=== PATIENT | male | born 1950 | race African-American/Black ===

== ENCOUNTER → 2016-11-27 | Day surgery (SDC) | payer BC, MEDICARE ==
[~2016-11-27] VITALS: Ht 157.4 cm; Wt 81.2 kg
[~2016-11-27] MED LIST: ACETAMINOPHEN-H1 TA2 PO; ALPRAZOLAM0.5 M3 JT; AMITRIPTYLINE25 MG PO; ASPIRIN ADULT L81 M1 PO; GABAPENTIN400 MG PO; HYDROCHLOROTHIA25 M1 PO; LISINOPRIL20 MG PO; METFORMIN850 MG PO; OMEPRAZOLE D/R20 MG PO; SIMVASTATIN80 MG PO
--- NOTE | ~2016-11-27 | PROC NOTE ---
[place], [place] PROCEDURE NOTE NAME: FLORIAN MALDONADO UNIT #: [id number] ROOM: DOCTOR: THO MUSA MD BIRTHDATE: [birth year] DOS: 11/27/2016 PREOPERATIVE DIAGNOSIS: Screening examination. POSTOPERATIVE DIAGNOSIS: Screening examination. PROCEDURE: Colonoscopy. ENDOSCOPIST: Tho Musa MD COUNTY NURSE: [place]. ANESTHESIA: MAC. INDICATIONS: This is a 66-year-old -French gentleman with no prior history of colonoscopy, who is here for the above-mentioned procedure. The procedure and its complications were explained to the patient in detail preoperatively. Complications that were discussed included but were not limited to bleeding, missed lesions and colon perforation. He agreed to proceed. DESCRIPTION OF PROCEDURE: After identifying the patient, the patient was brought into the endoscopy suite and laid in the left lateral position. After IV sedation was administered, a timeout procedure was called and a digital rectal exam was performed. This was within normal limits. There was no blood on the examining finger and no masses that could be felt. An adult colonoscope was now introduced into the anal canal and advanced sequentially into the rectum, sigmoid colon, descending colon, transverse colon and ascending colon up to the cecum. The prep was found to be optimal. Upon reaching the cecum, the scope was withdrawn. Total withdrawal time was approximately 7 minutes. There was no obvious mucosal lesions that could be identified upon withdrawal. Upon reaching the rectum, the scope was retroflexed and there were internal hemorrhoids that could be identified which were uncomplicated. The scope was withdrawn and the patient was taken to the recovery room in a stable fashion. There were no complications. Dr. Tho Musa, the attending endoscopist, was present throughout the operating case. Based on these findings, the patient is recommended another colonoscopy in 10 years or earlier if he had any GI related issues. These findings were relayed to the patient's and I will talk to the patient himself in the office in 2 weeks. [place], [place] PROCEDURE NOTE NAME: FLORIAN MALDONADO UNIT #: [id number] ROOM: DOCTOR: THO MUSA MD BIRTHDATE: [birth year] Tho Musa MD CM:PROCNOTE:PROCEDURE NOTE [id number] THO MUSA MD
== END | disposition home or self-care (01) ==
LOC: SDC 11-24 11:00
DX: Z12.11 Encounter for screening for malignant neoplasm of colon (principal); K64.8 Other hemorrhoids; E11.9 Type 2 diabetes mellitus without complications; I10 Essential (primary) hypertension; E78.00 Pure hypercholesterolemia, unspecified; Z83.3 Family history of diabetes mellitus; Z82.49 Family history of ischemic heart disease and other diseases of the circulatory system; Z82.3 Family history of stroke; F17.210 Nicotine dependence, cigarettes, uncomplicated

== ENCOUNTER → 2016-12-14 | Outpatient (CLI) | payer BC, MEDICARE ==
[2016-12-14 12:50] LABS: BASO % 0.3 % (0.0-1.0); EOS # 0.1 10*3/uL (0.0-0.4); EOS % 1.7 % (1.0-4.0); HEMATOCRIT 42.6 % (42.0-52.0); HEMOGLOBIN 14.3 g/dl (14.0-18.0); LYMPH % 29.4 % (27.0-41.0); MEAN CELL VOLUME 90.1 fl (80.0-94.0); MEAN CORPUSCULAR HGB 30.2 pg (27.0-31.0); MEAN CORPUSCULAR HGB CONC 33.6 g/dl (33.0-37.0); MEAN PLATELET VOLUME 10.9 fl (9.6-12.3); MONO # 0.2 10*3/uL (0.1-1.0); MONO % 6.5 % (3.0-9.0); NEUT # 2.2 10*3/uL (2.3-7.9); NEUT % 61.5 % (47.0-73.0); PLATELET COUNT AUTOMATED 237 10*3/uL (130-400); RED BLOOD COUNT 4.73 10*6/uL (4.50-5.90); RED CELL DISTRI WIDTH 13.2 % (0-14.5); WHITE BLOOD COUNT 3.5 10*3/uL (4.8-10.8)
[2016-12-14 12:54] LABS: HEMOGLOBIN A1c 6.3 % (4.8-5.6)
[2016-12-14 13:09] LABS: ALBUMIN 3.7 gm/dl (3.1-4.5); ALKALINE PHOSPHATASE 60 U/L (45-117); BILIRUBIN, TOTAL 0.4 mg/dl (0.2-1.0); BUN 15 mg/dl (7-24); CARBON DIOXIDE 27 mmol/L (21-32); CHLORIDE 105 mmol/L (98-107); CHOLESTEROL 120 mg/dL (<200); EST GLOM FILT AFRICAN AMERICAN > 60 ml/min; FREE T4 1.12 ng/dl (0.76-1.46); GLUCOSE 107 mg/dL (65-99); HDL CHOLESTEROL 67 mg/dl (40-60); LDL CHOLESTEROL 36 mg/dL (9-159); POTASSIUM 4.1 mmol/L (3.5-5.1); SGOT/AST 17 IU/L (3-35); SGPT/ALT 27 U/L (12-78); SODIUM 141 mmol/L (136-145); TOTAL PROTEIN 6.5 gm/dL (6.4-8.2); TRIGLYCERIDES 85 mg/dl (<150); VLDL CHOLESTEROL 17 mg/dL (6-40)
[2016-12-14 13:13] LABS: THYROID STIM HORMONE (HS) 0.932 uIU/ml (0.358-4.75)
[2016-12-14 13:41] LABS: FOLIC ACID 12.05 ng/mL (>5.38); VITAMIN D, 25-HYDROXY 35.9 ng/mL (30-100)
== END | disposition home or self-care (01) ==
LOC: LAB 03:06 → RESCLI 03:06
PROVIDERS: Student in an Organized Health Care Education/Training Program
DX: E11.9 Type 2 diabetes mellitus without complications (principal); R53.83 Other fatigue

== ENCOUNTER → 2017-01-11 | Outpatient (CLI) | payer BC, MEDICARE ==
[2017-01-11 14:49] LABS: BASO % 0.5 % (0.0-1.0); EOS % 0.5 % (1.0-4.0); HEMATOCRIT 42.5 % (42.0-52.0); HEMOGLOBIN 14.1 g/dl (14.0-18.0); LYMPH # 1.5 10*3/uL (1.3-4.4); LYMPH % 27.4 % (27.0-41.0); MEAN CELL VOLUME 90.4 fl (80.0-94.0); MEAN CORPUSCULAR HGB CONC 33.2 g/dl (33.0-37.0); MEAN PLATELET VOLUME 10.4 fl (9.6-12.3); MONO # 0.4 10*3/uL (0.1-1.0); MONO % 6.6 % (3.0-9.0); NEUT # 3.6 10*3/uL (2.3-7.9); NEUT % 64.3 % (47.0-73.0); PLATELET COUNT AUTOMATED 236 10*3/uL (130-400); RED CELL DISTRI WIDTH 13.1 % (0-14.5); WHITE BLOOD COUNT 5.6 10*3/uL (4.8-10.8)
[2017-01-12 09:14] LABS: MICRO ALBUMIN/CRE RATIO 6.2 (0.0-30.0)
== END | disposition home or self-care (01) ==
LOC: RESCLI 00:39 → LAB 00:39 → RESCLI 09:44
PROVIDERS: Internal Medicine
DX: E11.9 Type 2 diabetes mellitus without complications (principal); D72.819 Decreased white blood cell count, unspecified

== ENCOUNTER 2017-02-15 13:58 | Inpatient (IN) | payer BC, MEDICARE ==
[2017-02-14 20:20] VITALS: BP 149/78
[~2017-02-15] VITALS: Ht 162.5 cm; Wt 78.6 kg
--- NOTE | ~2017-02-15 | CON ---
[place], [place] REPORT OF CONSULTATION NAME: FLORIAN MALDONADO UNIT #: [id number] ROOM: 520 DOCTOR: ANDRZEJ WEN,DECEMBER BIRTHDATE: [birth year] DOS: 02/18/2017 HISTORY OF PRESENT ILLNESS: The patient is a 66-year-old -Stateless male who was admitted from home on 02/15. He came in, not feeling well, having fevers. He had been sick for a few days. Complaining of, he states, kidney pain. He had pain across his back as well as pressure in lower abdomen and burning/dysuria. He was started on Merrem. He has been running intermittent fevers. He states he has not been on any recent antibiotics at home. His urine cultures negative. His blood cultures negative. He does have a history of prostate cancer and received brachytherapy for that. CT showed a possible pyelonephritis. The CT was done without contrast. States he does feel better. He continued to have temps for a few days, but his temps have been down since yesterday. PAST MEDICAL HISTORY: As above as well as GERD, diabetes, hyperlipidemia, hypertension, neuropathy, knee surgery. SOCIAL HISTORY: Nonsmoker, nondrinker. No illicit drug use. . FAMILY MEDICAL HISTORY: Significant for father with cancer and mother with kidney issues. REVIEW OF SYSTEMS: Alert and oriented, feeling better. Denies any dysuria. States his back pain has been improving. His last temp was last night was 101.9. No headache or dizziness. No chest pain or palpitations. No cough or shortness of breath. No peripheral edema. As above in history of present illness. Further review of systems is unremarkable. CURRENT MEDICATIONS: Include aspirin, Elavil, Xanax, Prilosec, Zocor, Zestril, [place], Glucophage, Neurontin, Lovenox, Merrem, Restoril, Zofran, milk of magnesia, Dulcolax. RADIOLOGY: Imaging reviewed. Chest x-ray shows ____ density in the right middle fissure, possibly fluid. LABORATORY DATA: WBC is 5.8. This had improved from 11.9 on admission. Platelets 218. BUN 7 and creatinine 0.91. PHYSICAL EXAMINATION: VITAL SIGNS: Temp 98.3, pulse 86, respirations 20, BP 145/84. GENERAL: A 66-year-old -Stateless male in no acute distress. HEAD, EYES, EARS, NOSE AND THROAT: Normocephalic. Mucous membranes pink and moist. No thrush. NECK: No cervical lymphadenopathy. LUNGS: Clear to auscultation bilaterally. Respirations even and unlabored. HEART: Regular rhythm. No murmur appreciated. ABDOMEN: Soft, nontender, obese, positive bowel sounds, nondistended. No CVA tenderness. EXTREMITIES: No edema, deformity or cyanosis noted. SKIN: Warm, dry and intact, free of rashes. [place], [place] REPORT OF CONSULTATION NAME: FLORIAN MALDONADO UNIT #: [id number] ROOM: [facility] DOCTOR: ANDRZEJ WENDECEMBER BIRTHDATE: [birth year] ASSESSMENT AND PLAN: Despite the negative urine culture symptomatically ____ scan does seem consistent with pyelonephritis. Fevers do seem to be improving. The last temp was yesterday evening of 101.9. We will continue to follow. I discussed with the patient and his , he needs to have a repeat chest x-ray as well to reevaluate the right middle lobe area. Case discussed with Dr. Gato Cruz. DECEMBER BEHZAD DONNELLY GATO CRUZ MD CM:CONSTR:REPORT OF CONSULTATION 1849 02/18/17 2008 interface
--- NOTE | ~2017-02-15 | PR ---
[place], [place] PROGRESS NOTE NAME: FLORIAN MALDONADO UNIT #: [id number] ROOM: [facility] DOCTOR: ANDRZEJ WEN,DECEMBER BIRTHDATE: [birth year] DOS: 02/19/2017 SUBJECTIVE: The patient is a 66-year-old -Guyanese male who is being followed for possible pyelonephritis. He had a CT that showed possible pyelo and he complained of mid back pain at the time of admission ____ and also pelvic discomfort. His UA was unremarkable, however and his urine cultures are negative. Blood cultures are negative. He has been receiving Merrem for possible pyelonephritis. He continues to have some temp ____ temp 101.6 last night, has been afebrile today. He denies any cough or shortness of breath. No dyspnea on exertion. No nausea or vomiting. No diarrhea. No rash or itch. No dysuria or hematuria. No flank pain. LABORATORY DATA: Showed sodium 143. BUN 6. Cultures as above. Chest x-ray reviewed and shows worsening infiltrates. PHYSICAL EXAMINATION: GENERAL: A 66-year-old -Guyanese male, in no acute distress, nontoxic in appearance. HEAD, EYES, EARS, NOSE AND THROAT: Normocephalic. No thrush. LUNGS: Clear to auscultation bilaterally. Respirations even and unlabored. HEART: Regular rhythm. No murmur appreciated. ABDOMEN: Soft, obese, nontender. No masses. EXTREMITIES: No edema, deformity or cyanosis. SKIN: Warm, dry. No rash. BACK: No CVA tenderness. ASSESSMENT: Recurrent fever, blood and urine cultures negative, questionable pyelonephritis on his CT scan, worsening chest x-ray. PLAN: At this point, we will check a CT of the chest, add Levaquin, check urine for Legionella and Strep pneumoniae antigen, possibly stop the Merrem. Follow up on cultures and scans and adjust antibiotics accordingly. Case discussed with Dr. Gato Cruz. DECEMBER BEHZAD DONNELLY [place], [place] PROGRESS NOTE NAME: FLORIAN MALDONADO UNIT #: [id number] ROOM: 520 DOCTOR: ANDRZEJ WEN,DECEMBER BIRTHDATE: [birth year] GATO CRUZ MD CM:PNTRANS 1834 01 ANDRZEJ WEN 02/19/17 2001 interface
--- NOTE | ~2017-02-15 | CON ---
[place], [place] REPORT OF CONSULTATION NAME: FLORIAN MALDONADO UNIT #: [id number] ROOM: 520 DOCTOR: ANTHONY YOU,GATO Lubin BIRTHDATE: [birth year] DOS: 02/21/2017 ADDENDUM This is an addendum to the consult dictated originally by Dr. Edwige hung on , 02/18/17. I agree with the above case after reviewing the labs, radiographs and will follow the patient up clinically and make appropriate changes in treatment. Thank you for allowing me to see the patient. GATO CRUZ MD CM:CONSTR:REPORT OF CONSULTATION 1726 02/22/17 0217 interface
[2017-02-15 14:07] LABS: BILIRUBIN 2+ (NEGATIVE); BLOOD TRACE-LYSED (NEGATIVE); CLARITY CLEAR (CLEAR); COLOR YELLOW (YELLOW); GLUCOSE NEGATIVE (NEGATIVE); KETONE 2+ (NEGATIVE); LEUKO ESTERASE NEGATIVE (NEGATIVE); NITRITE NEGATIVE (NEGATIVE); PROTEIN 2+ (NEGATIVE); SPECIFIC GRAVITY >= 1.030 (1.005-1.030)
[2017-02-15 14:11] VITALS: BP 154/92
[2017-02-15 14:31] LABS: EPITHELIAL CELLS 0-2; WBC 0-2 wbc/hpf (0-5)
[2017-02-15 14:32] LABS: BACTERIA TRACE; MUCOUS 2+; URINE REFLEX COMMENT NO (NO)
[2017-02-15 15:03] LABS: BILIRUBIN 2+ (NEGATIVE); BLOOD 1+ (NEGATIVE); CLARITY CLEAR (CLEAR); COLOR YELLOW (YELLOW); GLUCOSE NEGATIVE (NEGATIVE); KETONE 1+ (NEGATIVE); LEUKO ESTERASE NEGATIVE (NEGATIVE); NITRITE NEGATIVE (NEGATIVE); PROTEIN 2+ (NEGATIVE); SPECIFIC GRAVITY 1.025 (1.005-1.030)
[2017-02-15 15:12] LABS: BASO % 0.1 % (0.0-1.0); HEMATOCRIT 42.2 % (42.0-52.0); HEMOGLOBIN 14.1 g/dl (14.0-18.0); IG # 0.1 10*3/uL (0.0-0.1); LYMPH # 1.1 10*3/uL (1.3-4.4); LYMPH % 9.1 % (27.0-41.0); MEAN CELL VOLUME 88.7 fl (80.0-94.0); MEAN CORPUSCULAR HGB 29.6 pg (27.0-31.0); MEAN CORPUSCULAR HGB CONC 33.4 g/dl (33.0-37.0); MEAN PLATELET VOLUME 10.5 fl (9.6-12.3); MONO # 1.1 10*3/uL (0.1-1.0); MONO % 9.2 % (3.0-9.0); NEUT # 9.6 10*3/uL (2.3-7.9); NEUT % 80.8 % (47.0-73.0); PLATELET COUNT AUTOMATED 223 10*3/uL (130-400); RED BLOOD COUNT 4.76 10*6/uL (4.50-5.90); RED CELL DISTRI WIDTH 12.9 % (0-14.5); WHITE BLOOD COUNT 11.9 10*3/uL (4.8-10.8)
[2017-02-15 15:20] LABS: PROTHROMBIN TIME 10.3 SECONDS (9.0-12.4)
[2017-02-15 15:25] LABS: BACTERIA 1+; URINE REFLEX COMMENT YES (NO); WBC 0-2 wbc/hpf (0-5)
[2017-02-15 15:30] LABS: ALBUMIN 3.6 gm/dl (3.1-4.5); ALKALINE PHOSPHATASE 60 U/L (45-117); BILIRUBIN, TOTAL 0.6 mg/dl (0.2-1.0); BUN 16 mg/dl (7-24); CARBON DIOXIDE 28 mmol/L (21-32); CHLORIDE 99 mmol/L (98-107); EST GLOM FILT AFRICAN AMERICAN > 60 ml/min; GLUCOSE 130 mg/dL (65-99); MAGNESIUM 2.2 mg/dL (1.5-2.1); POTASSIUM 3.9 mmol/L (3.5-5.1); SGOT/AST 18 IU/L (3-35); SGPT/ALT 21 U/L (12-78); SODIUM 137 mmol/L (136-145); TOTAL PROTEIN 8.1 gm/dL (6.4-8.2)
[2017-02-15 15:39] LABS: TROPONIN I < 0.015 ng/ml (<0.045)
[2017-02-15 18:15] VITALS: BP 151/95
[2017-02-15 19:35] VITALS: BP 170/100
[2017-02-15 20:25] VITALS: BP 149/78
[2017-02-16] VITALS: BP 144/79
[2017-02-16 06:25] LABS: BASO % 0.2 % (0.0-1.0); EOS % 0.1 % (1.0-4.0); HEMATOCRIT 36.5 % (42.0-52.0); HEMOGLOBIN 12.3 g/dl (14.0-18.0); IG # 0.1 10*3/uL (0.0-0.1); LYMPH # 0.8 10*3/uL (1.3-4.4); LYMPH % 8.6 % (27.0-41.0); MEAN CELL VOLUME 88.2 fl (80.0-94.0); MEAN CORPUSCULAR HGB 29.7 pg (27.0-31.0); MEAN CORPUSCULAR HGB CONC 33.7 g/dl (33.0-37.0); MEAN PLATELET VOLUME 10.6 fl (9.6-12.3); MONO # 1.1 10*3/uL (0.1-1.0); MONO % 11.8 % (3.0-9.0); NEUT # 7.4 10*3/uL (2.3-7.9); NEUT % 78.7 % (47.0-73.0); PLATELET COUNT AUTOMATED 181 10*3/uL (130-400); RED BLOOD COUNT 4.14 10*6/uL (4.50-5.90); RED CELL DISTRI WIDTH 12.9 % (0-14.5); WHITE BLOOD COUNT 9.5 10*3/uL (4.8-10.8)
[2017-02-16 06:48] LABS: HEMOGLOBIN A1c 6.7 % (4.8-5.6)
[2017-02-16 07:01] LABS: ALBUMIN 2.9 gm/dl (3.1-4.5); ALKALINE PHOSPHATASE 48 U/L (45-117); BUN 11 mg/dl (7-24); CARBON DIOXIDE 25 mmol/L (21-32); CHLORIDE 106 mmol/L (98-107); CHOLESTEROL 111 mg/dL (<200); EST GLOM FILT AFRICAN AMERICAN > 60 ml/min; GLUCOSE 127 mg/dL (65-99); HDL CHOLESTEROL 61 mg/dl (40-60); LDL CHOLESTEROL 29 mg/dL (9-159); MAGNESIUM 2.1 mg/dL (1.5-2.1); PHOSPHOROUS 1.8 mg/dL (2.5-4.9); POTASSIUM 3.8 mmol/L (3.5-5.1); SGOT/AST 19 IU/L (3-35); SGPT/ALT 16 U/L (12-78); SODIUM 141 mmol/L (136-145); TOTAL PROTEIN 6.6 gm/dL (6.4-8.2); TRIGLYCERIDES 104 mg/dl (<150); VLDL CHOLESTEROL 21 mg/dL (6-40)
[2017-02-16 07:06] LABS: BILIRUBIN, TOTAL 0.6 mg/dl (0.2-1.0); THYROID STIM HORMONE (HS) 0.275 uIU/ml (0.358-4.75)
[2017-02-16 07:22] LABS: FOLIC ACID 13.4 ng/mL (>5.38); VITAMIN D, 25-HYDROXY 43.4 ng/mL (30-100)
[2017-02-16 08:00] VITALS: BP 157/82
[2017-02-16 12:00] VITALS: BP 157/79
[2017-02-16 16:00] VITALS: BP 121/51
[2017-02-16 20:00] VITALS: BP 148/81
[2017-02-17] VITALS: BP 144/76
[2017-02-17 06:23] LABS: BASO % 0.2 % (0.0-1.0); EOS % 0.6 % (1.0-4.0); HEMATOCRIT 36.9 % (42.0-52.0); HEMOGLOBIN 12.3 g/dl (14.0-18.0); MEAN CELL VOLUME 89.1 fl (80.0-94.0); MEAN CORPUSCULAR HGB 29.7 pg (27.0-31.0); MEAN CORPUSCULAR HGB CONC 33.3 g/dl (33.0-37.0); MEAN PLATELET VOLUME 10.5 fl (9.6-12.3); MONO % 15.3 % (3.0-9.0); NEUT # 4.5 10*3/uL (2.3-7.9); NEUT % 68.3 % (47.0-73.0); PLATELET COUNT AUTOMATED 200 10*3/uL (130-400); RED BLOOD COUNT 4.14 10*6/uL (4.50-5.90); WHITE BLOOD COUNT 6.6 10*3/uL (4.8-10.8)
[2017-02-17 06:51] LABS: BUN 9 mg/dl (7-24); CARBON DIOXIDE 27 mmol/L (21-32); CHLORIDE 107 mmol/L (98-107); EST GLOM FILT AFRICAN AMERICAN > 60 ml/min; GLUCOSE 135 mg/dL (65-99); POTASSIUM 3.9 mmol/L (3.5-5.1); SODIUM 142 mmol/L (136-145)
[2017-02-17 08:00] VITALS: BP 147/92; BP 151/82
[2017-02-17 12:00] VITALS: BP 135/80
[2017-02-17 16:00] VITALS: BP 124/57
[2017-02-17 20:00] VITALS: BP 157/54
[2017-02-18] VITALS: BP 146/80
[2017-02-18 06:18] LABS: BASO % 0.3 % (0.0-1.0); EOS # 0.1 10*3/uL (0.0-0.4); EOS % 1.9 % (1.0-4.0); HEMATOCRIT 36.2 % (42.0-52.0); IG # 0.1 10*3/uL (0.0-0.1); LYMPH % 17.9 % (27.0-41.0); MEAN CELL VOLUME 89.8 fl (80.0-94.0); MEAN CORPUSCULAR HGB 29.8 pg (27.0-31.0); MEAN CORPUSCULAR HGB CONC 33.1 g/dl (33.0-37.0); MEAN PLATELET VOLUME 10.6 fl (9.6-12.3); MONO # 0.8 10*3/uL (0.1-1.0); MONO % 13.9 % (3.0-9.0); NEUT # 3.8 10*3/uL (2.3-7.9); PLATELET COUNT AUTOMATED 218 10*3/uL (130-400); RED BLOOD COUNT 4.03 10*6/uL (4.50-5.90); RED CELL DISTRI WIDTH 13.1 % (0-14.5); WHITE BLOOD COUNT 5.8 10*3/uL (4.8-10.8)
[2017-02-18 06:45] LABS: CHLORIDE 107 mmol/L (98-107); SODIUM 142 mmol/L (136-145)
[2017-02-18 06:50] LABS: BUN 7 mg/dl (7-24); CARBON DIOXIDE 26 mmol/L (21-32); EST GLOM FILT AFRICAN AMERICAN > 60 ml/min; GLUCOSE 132 mg/dL (65-99)
[2017-02-18 08:00] VITALS: BP 155/92
[2017-02-18 12:00] VITALS: BP 136/77
[2017-02-18 16:00] VITALS: BP 145/84
[2017-02-18 20:00] VITALS: BP 153/88
[2017-02-19] VITALS: BP 132/79
[2017-02-19 07:51] LABS: BUN 6 mg/dl (7-24); CARBON DIOXIDE 29 mmol/L (21-32); CHLORIDE 104 mmol/L (98-107); EST GLOM FILT AFRICAN AMERICAN > 60 ml/min; GLUCOSE 106 mg/dL (65-99); PHOSPHOROUS 2.5 mg/dL (2.5-4.9); SODIUM 143 mmol/L (136-145)
[2017-02-19 08:00] VITALS: BP 168/78
[2017-02-19 12:00] VITALS: BP 146/78
[2017-02-19 16:00] VITALS: BP 134/63
[2017-02-19 20:00] VITALS: BP 141/87
[2017-02-20] VITALS: BP 144/86
[2017-02-20 08:00] VITALS: BP 152/90
[2017-02-20 12:00] VITALS: BP 134/80
[2017-02-20 16:00] VITALS: BP 118/64
[2017-02-20 20:00] VITALS: BP 142/88; BP 148/93
[2017-02-21] VITALS: BP 125/65
[2017-02-21 06:12] LABS: HEMATOCRIT 36.3 % (42.0-52.0); MEAN CELL VOLUME 89.6 fl (80.0-94.0); MEAN CORPUSCULAR HGB 29.6 pg (27.0-31.0); MEAN CORPUSCULAR HGB CONC 33.1 g/dl (33.0-37.0); MEAN PLATELET VOLUME 10.2 fl (9.6-12.3); PLATELET COUNT AUTOMATED 340 10*3/uL (130-400); RED BLOOD COUNT 4.05 10*6/uL (4.50-5.90); RED CELL DISTRI WIDTH 12.7 % (0-14.5); WHITE BLOOD COUNT 7.8 10*3/uL (4.8-10.8)
[2017-02-21 06:46] LABS: ALBUMIN 2.6 gm/dl (3.1-4.5); ALKALINE PHOSPHATASE 58 U/L (45-117); BASOPHIL # 0.1 10*3/uL (0-0.1); BASOPHILS 1 % (0-1); BILIRUBIN, TOTAL 0.3 mg/dl (0.2-1.0); BUN 9 mg/dl (7-24); CARBON DIOXIDE 30 mmol/L (21-32); CHLORIDE 103 mmol/L (98-107); EST GLOM FILT AFRICAN AMERICAN > 60 ml/min; GLUCOSE 134 mg/dL (65-99); LYMPHOCYTE # 1.3 10*3/uL (1.3-4.4); MONOCYTE # 0.3 10*3/uL (0.1-1.0); MYELOCYTES 1 % (0-0); NEUTROPHILS 77 % (47-73); PLATELET SUFFICIENCY NORMAL (NORMAL); POTASSIUM 4.4 mmol/L (3.5-5.1); SGOT/AST 13 IU/L (3-35); SGPT/ALT 20 U/L (12-78); SODIUM 143 mmol/L (136-145); TOTAL CELLS COUNTED 100 #CELLS; TOTAL PROTEIN 6.3 gm/dL (6.4-8.2)
[2017-02-21 08:00] VITALS: BP 128/98
[2017-02-21] MEDS ORDERED: LEVAQUIN750 M1 PO (11:50)
[2017-02-22 16:10] LABS: ORGANISM ID Not indicated. (.); SPECIMEN SOURCE Urine (.); STREPTOCOCCUS PNEUMONIAE AG Negative (Negative)
== END 2017-02-21 13:15 | disposition home or self-care (01) | DRG 871 ==
LOC: ED 13:58 → EDSTATUS 13:58 → ED 14:00 → 5E 18:42 → EDHOLD 18:42 → 5E 19:01
PROVIDERS: Family Medicine; Internal Medicine; Nurse Practitioner; Obstetrics & Gynecology; Physician Assistant; Student in an Organized Health Care Education/Training Program
DX: A41.9 Sepsis, unspecified organism (principal); J18.9 Pneumonia, unspecified organism; E44.0 Moderate protein-calorie malnutrition; E11.40 Type 2 diabetes mellitus with diabetic neuropathy, unspecified; N12 Tubulo-interstitial nephritis, not specified as acute or chronic; I10 Essential (primary) hypertension; G89.29 Other chronic pain; F41.9 Anxiety disorder, unspecified; E78.5 Hyperlipidemia, unspecified; K21.9 Gastro-esophageal reflux disease without esophagitis; E83.39 Other disorders of phosphorus metabolism; Z85.46 Personal history of malignant neoplasm of prostate; Z79.84 Long term (current) use of oral hypoglycemic drugs; Z68.29 Body mass index [BMI] 29.0-29.9, adult; Z83.3 Family history of diabetes mellitus; Z82.3 Family history of stroke; Z84.1 Family history of disorders of kidney and ureter; Z82.49 Family history of ischemic heart disease and other diseases of the circulatory system; Z79.899 Other long term (current) drug therapy; Z79.82 Long term (current) use of aspirin; Z80.9 Family history of malignant neoplasm, unspecified

== ENCOUNTER → 2017-03-15 | Outpatient (CLI) | payer OTHER, MEDICARE ==
[~2017-03-15] MED LIST changes: +LEVAQUIN750 M1 PO
== END | disposition home or self-care (01) ==
LOC: RESCLI 02:00
DX: E11.9 Type 2 diabetes mellitus without complications (principal); I10 Essential (primary) hypertension; M19.90 Unspecified osteoarthritis, unspecified site; M54.42 Lumbago with sciatica, left side; M54.41 Lumbago with sciatica, right side; G89.29 Other chronic pain; K21.9 Gastro-esophageal reflux disease without esophagitis; E55.9 Vitamin D deficiency, unspecified; E78.5 Hyperlipidemia, unspecified

== ENCOUNTER → 2017-12-08 | Outpatient (CLI) | payer OTHER, MEDICARE | END | disposition home or self-care (01) | LOC: RESCLI 08:15 | DX: E11.9 Type 2 diabetes mellitus without complications (principal); I10 Essential (primary) hypertension; M19.90 Unspecified osteoarthritis, unspecified site; M54.42 Lumbago with sciatica, left side; M54.41 Lumbago with sciatica, right side; G89.29 Other chronic pain; K21.9 Gastro-esophageal reflux disease without esophagitis; D72.819 Decreased white blood cell count, unspecified; E55.9 Vitamin D deficiency, unspecified; E78.5 Hyperlipidemia, unspecified; F41.9 Anxiety disorder, unspecified; E66.9 Obesity, unspecified ==

== ENCOUNTER → 2018-01-05 | Outpatient (CLI) | payer OTHER, MEDICARE ==
[2018-01-06 07:06] LABS: HEPATITIS B SURFACE AG Negative (Negative); HEPATITIS C VIRUS ANTIBODY <0.1 s/co (0.0-0.9)
== END | disposition home or self-care (01) ==
LOC: RESCLI 09:52
PROVIDERS: Student in an Organized Health Care Education/Training Program
DX: E11.9 Type 2 diabetes mellitus without complications (principal); M19.90 Unspecified osteoarthritis, unspecified site; M54.42 Lumbago with sciatica, left side; M54.41 Lumbago with sciatica, right side; K21.9 Gastro-esophageal reflux disease without esophagitis; E55.9 Vitamin D deficiency, unspecified; E78.5 Hyperlipidemia, unspecified; F41.9 Anxiety disorder, unspecified; E66.9 Obesity, unspecified; G89.29 Other chronic pain; I10 Essential (primary) hypertension; Z85.46 Personal history of malignant neoplasm of prostate

== ENCOUNTER → 2018-03-29 | Outpatient (CLI) | payer OTHER, MEDICARE | END | disposition home or self-care (01) | LOC: RESCLI 03:51 | DX: E11.9 Type 2 diabetes mellitus without complications (principal); I10 Essential (primary) hypertension; M19.90 Unspecified osteoarthritis, unspecified site; M54.42 Lumbago with sciatica, left side; M54.41 Lumbago with sciatica, right side; G89.29 Other chronic pain; K21.9 Gastro-esophageal reflux disease without esophagitis; D72.819 Decreased white blood cell count, unspecified; E55.9 Vitamin D deficiency, unspecified; E78.5 Hyperlipidemia, unspecified; F41.9 Anxiety disorder, unspecified; E66.9 Obesity, unspecified; Z79.82 Long term (current) use of aspirin; Z79.899 Other long term (current) drug therapy; Z88.8 Allergy status to other drugs, medicaments and biological substances ==

== ENCOUNTER → 2018-06-09 | Outpatient (CLI) | payer OTHER, MEDICARE ==
[2018-06-09 13:07] LABS: HEMATOCRIT 41.5 % (42.0-52.0); MEAN CELL VOLUME 89.6 fl (80.0-94.0); MEAN CORPUSCULAR HGB 30.2 pg (27.0-31.0); MEAN CORPUSCULAR HGB CONC 33.7 g/dl (33.0-37.0); MEAN PLATELET VOLUME 10.4 fl (9.6-12.3); RED BLOOD COUNT 4.63 10*6/uL (4.50-5.90); RED CELL DISTRI WIDTH 13.5 % (0-14.5); WHITE BLOOD COUNT 5.3 10*3/uL (4.8-10.8)
== END | disposition home or self-care (01) ==
LOC: RESCLI 00:23 → LAB 00:23 → RESCLI 07:14
DX: D72.819 Decreased white blood cell count, unspecified (principal)

== ENCOUNTER → 2018-08-19 | Outpatient (CLI) | payer OTHER, MEDICARE | END | disposition home or self-care (01) | LOC: RESCLI 00:57 | DX: E78.5 Hyperlipidemia, unspecified (principal); E55.9 Vitamin D deficiency, unspecified; K21.9 Gastro-esophageal reflux disease without esophagitis; E11.9 Type 2 diabetes mellitus without complications; I10 Essential (primary) hypertension; G89.29 Other chronic pain; K59.00 Constipation, unspecified; Z79.899 Other long term (current) drug therapy; Z79.82 Long term (current) use of aspirin ==